=== PATIENT | male | born 1995 | race Caucasian/White ===

== ENCOUNTER 2020-07-30 09:23 | Emergency (ER) | payer OTHER ==
[2020-07-30 09:33] VITALS: BP 121/74; PULSE 75; TEMP 98.3; BMI 22.9
== END 2020-07-30 10:10 | disposition home or self-care (01) ==
LOC: JERFT 09:23
DX: Z20.2 Contact with and (suspected) exposure to infections with a predominantly sexual mode of transmission (principal)
CPT/HCPCS: 36415; 87491; 87591; 99283-25

== ENCOUNTER 2020-11-07 09:46 | Emergency (ER) | payer OTHER ==
[2020-11-07 09:55] VITALS: BP 96/61; PULSE 68; TEMP 97; BMI 22.9
[2020-11-07 11:23] LABS: PH,URINE 6.5 (5.0-8.0); URINE APPEARANCE CLOUDY; URINE BILIRUBIN NEGATIVE (NEGATIVE); URINE COLOR YELLOW; URINE GLUCOSE (UA) NEGATIVE (NEGATIVE); URINE KETONE NEGATIVE (NEGATIVE); URINE LEUK ESTERASE NEGATIVE (NEGATIVE); URINE NITRITE NEGATIVE (NEGATIVE); URINE PROTEIN NEGATIVE (NEGATIVE)
[2020-11-07 12:06] LABS: SYPHILIS W/ RPR CONF NON-REACTIVE (NONREACTIVE)
[2020-11-07 12:34] LABS: HIV INTERPRETATION NEGATIVE (NEGATIVE)
== END 2020-11-07 14:38 | disposition home or self-care (01) ==
LOC: JER 09:46
PROC: 3E0233Z Introduction of Anti-inflammatory into Muscle, Percutaneous Approach (ICD-10-PCS; principal; 2020-11-07)
DX: Z11.3 Encounter for screening for infections with a predominantly sexual mode of transmission (principal); Z20.2 Contact with and (suspected) exposure to infections with a predominantly sexual mode of transmission
CPT/HCPCS: 36415; 81003; 86780; 87086; 87389; 87491; 87591; 99284-25